=== PATIENT | male | born 1955 | race Caucasian/White ===

== ENCOUNTER 2023-10-18 11:07 | Emergency (ER) | payer OTHER, MEDICARE | END 2023-10-18 12:28 | disposition home or self-care (01) | LOC: MADERS 11:07 | DX: M25.561 Pain in right knee (principal) ==

== ENCOUNTER 2024-04-18 09:45 | Emergency (ER) | payer OTHER, MEDICARE ==
[2024-04-18] MEDS ORDERED: Bacitracin 1 PK ONE (10:26)
== END 2024-04-18 10:32 | disposition home or self-care (01) ==
LOC: MADERS 09:45
DX: S61.411D Laceration without foreign body of right hand, subsequent encounter (principal); X58.XXXD Exposure to other specified factors, subsequent encounter